=== PATIENT | female | born 1960 | race Caucasian/White ===

== ENCOUNTER 2019-05-14 08:51 | Emergency (ER) | payer MEDICAID ==
[~2019-05-14] VITALS: Ht 160 cm; Wt 65.8 kg
[2019-05-14 08:56] VITALS: BP 139/81; PULSE 72; RESP 18; Ht 160 cm; Wt 65.8 kg
--- NOTE | 2019-05-14 14:18 | ERD ---
ER Documentation Chief Complaint Chief Complaint c/o lump on right side of neck with sore throat for a while HPI This is 59-year-old female who presents emergency room with complaint of sen sation of lump in her throat x10 months. States she has been treated with amoxicillin twice in the last 10 months and this sensation has not changed. Denies fevers, no hematemesis, no difficulty with swallowing but does feel like something is stuck when she swallows. Clear speech, no wheezing or stridor, NAD. History of tonsillectomy 31 years ago due to "infection" ROS All systems reviewed and are negative except as per history of present illness. Allergies Allergies: Coded Allergies: No Known Drug Allergy (Verified Allergy, Mild, 12/17/09) PMhx/Soc Medical and Surgical Hx: pt denies Medical Hx History of Surgery: No Hx Neurological Disorder: No Hx Respiratory Disorders: No Hx Cardiac Disorders: No Hx Miscellaneous Medical Probl: No (denies other medical hx) Hx Alcohol Use: No Hx Substance Use: No Hx Tobacco Use: No FmHx Family History: No diabetes, No coronary disease, No other Physical Exam Vitals Vital Signs Date Temp Pulse Resp B/P (MAP) Pulse Ox O2 O2 Flow FiO2 Time Delivery Rate 05/14/19 97.9 72 18 139/81 98 08:56 (100) Physical Exam Const: No acute distress Head: Atraumatic Eyes: Normal Conjunctiva, PERRL ENT: Normal External Ears, Nose and Mouth. Pharynx pink, moist, no lesions or exudate. Uvula midline Neck: Full range of motion. No meningismus. No lymphadenopathy, no thyromegaly. No nodules. Resp: Clear to auscultation bilaterally Cardio: Regular rate and rhythm, no murmurs Skin: No petechiae or rashes Back: No midline or flank tenderness Neur: Awake and alert, CNII-XII intact, clear speech, equal smile, sensation Psych: Normal Mood and Affect Procedures/MDM MDM: Is a 59-year-old female patient who presents emergency room with complaint of sensation of nodule in her throat when she swallows. Patient states that she has had this for 10 months and has been treated for throat infection 2 times with amoxicillin, both times without improvement. Today patient does not present with any signs or symptoms of infection, no pharyngitis, no fever, no nasal congestion, no cough, no wheezing or rails. Patient was observed to drink water without coughing, gagging, choking, stridor, pain. No nodules or swelling palpated. There is no indication for impending airway involvement, soft tissue infection, deep space infection, meningitis, occult infection. Patient was instructed to follow-up with her primary care provider and or referral to ENT for further evaluation. Patient was instructed on signs and symptoms of worsening of condition and when to return to the emergency department. DISPOSITION and PLAN: The patient has been discharge home to follow-up with community physician. Departure Diagnosis: Primary Impression: Ear, nose and throat disorder Condition: Stable Patient Instructions: When You Have a Sore Throat Referrals: CARLOS BHAKTA MD, KEAGAN THOMAS,ELLIE QUEVEDO,JUANY ROMAN,ANNEMARIE WALTON,SHELLI MOURA,MARCIAL NIEVES,LAMONTE ESTRELLA,JESUS ALCAZAR,DARLIN WU,LAMONTE [facility] () Usted se nelson hecho un examen mdico de control que le indica que no est en germán condicin que requiera tratamiento urgente en el Departamento de Emergencia. Un estudio ms profundo y el tratamiento de mcdaniel condicin pueden esperar sin ningn riesgo hasta que usted sea atendida/o en el consultorio de mcdaniel mdico o germán clnica. Es responsabilidad suya arreglar germán hutner para el seguimiento del darren. MANEJO DE CONDICIONES NO URGENTES EN EL FUTURO 1) Si usted tiene un mdico de atencin primaria: Usted debera llamar a mcdaniel mdico de atencin primaria antes de venir al departamento de emergencia. Despus de las horas de consultorio, mcdaniel doctor o mcdaniel asociado/a est disponible por telfono. El mdico o enfermero de rica en el servicio telefnico puede asesorarle por isaac medio para atender el problema, o darren contrario se puede programar germán hunter. 2) Si usted no tiene un mdico de atencin primaria: Llame al mdico o clnica de referencia que aparece abajo eyad las horas de consultorio para hacer germán hunter para que le vean. CLINICAS: [facility] [phone] [facility] [phone] [facility] [phone] [facility] [phone] [facility] [phone] [address] [facility] [phone] [address] [facility] YOU HAVE RECEIVED A MEDICAL SCREENING EXAM AND THE RESULTS INDICATE THAT YOU DO NOT HAVE A CONDITION THAT REQUIRES URGENT TREATMENT IN THE EMERGENCY DEPARTMENT. FURTHER EVALUATION AND TREATMENT OF YOUR CONDITION CAN WAIT UNTIL YOU ARE SEEN IN YOUR DOCTORS OFFICE WITHIN THE NEXT 1-2 DAYS. IT IS YOUR RESPONSIBILITY TO MAKE AN APPOINTMENT FOR FOLOW-UP CARE. IF YOU HAVE A PRIMARY DOCTOR --you should call your primary doctor and schedule and appointment IF YOU DO NOT HAVE A PRIMARY DOCTOR YOU CAN CALL OUR PHYSICIAN REFERRAL HOTLINE AT . IF YOU CAN NOT AFFORD TO SEE A PHYSICIAN YOU CAN CHOSE FROM THE FOLLOWING [facility] INSTITUTIONS: [facility] [address] [place] [address] [facility] [address] [place] [address] [facility] COM[facility] [address] [place] [address] [facility] () Usted se nelson hecho un examen mdico de control que le indica que no est en germán condicin que requiera tratamiento urgente en el Departamento de Emergencia. Un estudio ms profundo y el tratamiento de mcdaniel condicin pueden esperar sin ningn riesgo hasta que usted sea atendida/o en el consultorio de mcdaniel mdico o germán clnica. Es responsabilidad suya arreglar germán hunter para el seguimiento del darren. MANEJO DE CONDICIONES NO URGENTES EN EL FUTURO 1) Si usted tiene un mdico de atencin primaria: Usted debera llamar a mcdaniel mdico de atencin primaria antes de venir al departamento de emergencia. Despus de las horas de consultorio, mcdaniel doctor o mcdaniel asociado/a est disponible por telfono. El mdico o enfermero de rica en el servicio telefnico puede asesorarle por isaac medio para atender el problema, o c aso contrario se puede programar germán hunter. 2) Si usted no tiene un mdico de atencin primaria: Llame al mdico o condado institucions de referencia que aparece abajo eyad las horas de consultorio para hacer germán hunter para que le vean. SI USTED NO PUEDE PAGAR PARA BILLY UN MEDICO puede ir a: [facility] [address] [place] [address] [facility] [address] [place] [address] [facility] [address] [place] [address] [place] [phone] Additional Instructions: Thank you very much for allowing us to participate in your care. Your health and safety is our top priority at [facility]. Call your primary care doctor TOMORROW for an appointment during the next 2-4 days and bring all the information and medications prescribed. Have prescriptions filled and follow precisely the directions on the label. If the symptoms get worse and your provider is unavailable, return to the Emergency Department immediately. YOU NEED TO FOLLOW-UP WITH YOUR PRIMARY CARE DOCTOR AND ENT SPECIALIST. RETURN TO THE EMERGENCY ROOM WITH A FEVER, DIFFICULTY SWALLOWING, SHORTNESS OF BREATH, WORSENING OR CHANGING OF SYMPTOMS. CHETAN BARRON NP May 14, 2019 14:18
== END 2019-05-14 10:12 | disposition home or self-care (01) ==
LOC: FTE 08:51
DX: H93.90 Unspecified disorder of ear, unspecified ear (principal); J34.9 Unspecified disorder of nose and nasal sinuses; J39.2 Other diseases of pharynx
CPT/HCPCS: 99282